=== PATIENT | male | born 1965 | race African-American/Black ===

== ENCOUNTER 2019-10-28 07:37 | Inpatient (IN) | payer SELFPAY ==
[2019-10-28] MEDS ORDERED: Morphine 4 MG/ML VIAL ONE ×3 (07:40→07:55)
[2019-10-28] MEDS ORDERED: Ondansetron PF 4 MG/2 ML Vial ONE (07:43)
[2019-10-28] MEDS ORDERED: Heparin 25,000 units/D5W 500 ML ONE (07:43)
[2019-10-28] MEDS ORDERED: Heparin 1,000 UNITS/ML VIAL ONE ×2 (07:43→07:45)
[2019-10-28] MEDS ORDERED: Lidocaine 1% (PF) 30 ML VIAL ONE (07:47)
[2019-10-28] MEDS ORDERED: Heparin (Artline) 500 ML ONE ×3 (07:47→09:08)
[2019-10-28 08:04] LABS: Hemoglobin 15.9 g/dL (14.0-18.0); Mean Corpuscular Hemoglobin 31.9 pg (27.0-31.0); Mean Corpuscular Volume 96.7 fL (78.0-98.0); Mean Platelet Volume 6.8 fL (7.4-10.4); Platelet Count 301 thou/uL (130-400); RBC Distribution Width 13.1 % (11.5-14.5); White Blood Cell (WBC) Count 7.8 thou/uL (4.8-10.8)
--- NOTE | 2019-10-28 08:06 | RAD ---
SINGLE VIEW OF THE CHEST: COMPARISON: None. HISTORY: Left-sided chest pain. FINDINGS: Single view of the chest shows a normal sized cardiomediastinal silhouette. There is no evidence of c onsolidation, mass, or pleural effusion. The bones are unremarkable. IMPRESSION: No evidence of acute cardiopulmonary disease. POS: CET
[2019-10-28 08:12] LABS: ALT (SGPT) 12 U/L (8-55); AST (SGOT) 17 U/L (5-34); Albumin 3.9 g/dL (3.5-5.0); Alkaline Phosphatase 117 U/L (40-110); Anion Gap 10 mmol/L (10-20); BUN (Urea Nitrogen) 11 mg/dL (8.4-25.7); Bilirubin, Total 0.3 mg/dL (0.2-1.2); CK (CPK) 317 U/L (30-200); Calc. Creatinine Clearance 0 mL/min (70-130); Calcium 8.8 mg/dL (7.8-10.44); Carbon Dioxide 27 mmol/L (22-29); Chloride 107 mmol/L (98-107); Estimated GFR-MDRD 54; Globulin 3.5 g/dL (2.4-3.5); Glucose 145 mg/dL (70-105); Potassium 3.6 mmol/L (3.5-5.1); Protein, Total 7.4 g/dL (6.0-8.3); Sodium 140 mmol/L (136-145)
[2019-10-28 08:14] LABS: PTT 27.4 SEC (22.9-36.1)
[2019-10-28] MEDS ORDERED: Midazolam HCl 2 mg/2 ml Vial ONE (08:25)
[2019-10-28] MEDS ORDERED: Nitroglycerin 100MG/250ML BOT 0 ML ONE (08:25)
[2019-10-28] MEDS ORDERED: Fentanyl 100 MCG/2 ML VIAL ONE (08:25)
[2019-10-28 08:28] LABS: #Basophils 0.2 thou/uL (0.0-0.2); #Eosinphils 0.2 thou/uL (0.0-0.7); #Lymphocytes 4.6 thou/uL (1.20-3.40); #Monocytes 0.6 thou/uL (0.11-0.59); #Neutrophils 2.3 thou/uL (1.40-6.50); %Basophils 2.2 % (0.0-1.0); %Lymphocytes 59.3 % (21.0-51.0); %Monocytes 7.2 % (0.0-10.0); %Neutrophils 29.3 % (42.0-75.0); Band 1 % (5-11); Eosinophils 3 % (0-10); Lymphocytes 61 % (21-51); MDiff Complete? YES; Monocytes 5 % (0-10); Neutrophil 29 % (42-75); Platelet Morphology Comment Appears Adequate; Target Cells SLIGHT = 2-5 cells (100X) (0-1/hpf)
[2019-10-28 08:34] LABS: Prothrombin Time 12.8 SEC (12.0-14.7)
[2019-10-28] MEDS ORDERED: Heparin 10,000 UNITS/1 ML VIAL ONE (08:38)
[2019-10-28] MEDS ORDERED: Morphine 2 MG/ML SYRINGE SLOW IVP PRN (09:59)
[2019-10-28] MEDS ORDERED: Nitroglycerin 0.4 MG TAB (25 Tab Bottle) SL PRN (09:59)
[2019-10-28 10:06] VITALS: BMI 37.9
[2019-10-28] MEDS ORDERED: Sodium Chloride 0.9% 500 ML IV SCH (10:15)
[2019-10-28 11:12] LABS: CKMB 35.4 ng/mL (0-6.6); Troponin I 2.814 ng/mL (< 0.028)
--- NOTE | 2019-10-28 12:32 | HP ---
CHIEF COMPLAINT: Chest pain. HISTORY OF PRESENT ILLNESS: Mr. Calix is a very pleasant 54-year-old gentleman, who comes to the hospital for chest pain. He started having chest pain at about 5:30 a.m. About an hour later, he continued to have pain, so he decided to call 911. On arrival, EMS did an EKG, that showed inferior ST elevation, so he was brought in emergently with a STEMI activation. On my evaluation, his ST elevations were still there and he was having ongoing chest pain, so he was taken emergently to the catheterization lab, where emergent left heart catheterization was done. He was found to have an occluded mid RCA. He tells me he had a stent placed to this RCA about 6 months ago at [facility] in [place]. 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 He has had a bypass in the past, single-vessel, looks to be like an RCA bypass and this has been occluded and has had to have stents to the RCA since. He has stents pretty much throughout his all of his RCA up until probably just a few centimeter before the bifurcation. This was occluded mid vessel. We wired it, ballooned it open, did manual thrombectomy until got a large amount of thrombus and a 3.0 x 24 mm drug-eluting stent was placed in the mid RCA with very good results. This was then posted to 3.56 cm. He did well. His pain was completely gone once we opened up the artery. He is pain free at the end of the procedure. PAST MEDICAL HISTORY: 1. CAD as above. 2. Hypertension. 3. Hyperlipidemia. SURGICAL HISTORY: 1. Single-vessel bypass of vein to the RCA, which has been occluded since. 2. Left hip replacement. 3. Back surgery x2. SOCIAL HISTORY: No alcohol, tobacco, or drugs. 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 OUTPATIENT MEDICATIONS: 1. Sublingual nitroglycerin p.r.n. 2. Spironolactone 25 mg a day. 3. Arginine 4000 mg b.i.d. 4. Imdur 30 mg a day. 5. Amlodipine 10 mg nightly. 6. Atorvastatin 20 mg nightly. 7. Atenolol 25 mg b.i.d. 8. Lidocaine patch. 9. Diphenhydramine p.r.n. 10. Famotidine 40 mg b.i.d. 11. Aspirin 81 a day. ALLERGIES: APPARENTLY, HE HAS BEEN ALLERGIC TO IODINE; HOWEVER, WE DID THE PROCEDURE WITHOUT ANY EVIDENCE OF ALLERGIC REACTION, AND WHEN ASKING HIM IF HE WAS ALLERGIC TO ANYTHING, HE MENTIONED THAT HE WAS NOT. IT HAS BEEN AT LEAST 4 HOURS FROM THE PROCEDURE. AT THE TIME OF THIS DICTATION, HE STILL HAS NOT HAD ANY REACTION TO THE CONTRAST USED FOR HIS CATHETERIZATION. REVIEW OF SYSTEMS: A 12-point review of systems was done and was all negative unless stated in the history of present illness. PHYSICAL EXAMINATION: VITAL SIGNS: Temperature 97.7, pulse 62, respiratory rate 20, satting 100% on room air, and blood pressure 130/70. GENERAL: Awake, alert, and oriented x3, in no distress. HEENT: Normocephalic and atraumatic. NECK: Supple. LUNGS: Clear. CARDIOVASCULAR: S1 and S2. No S3 or S4. There is a grade 2/6 systolic murmur at the right upper sternal border. Ejection systolic murmur. ABDOMEN: Soft. Positive bowel sounds. EXTREMITIES: No edema. SKIN: Warm and dry. LABORATORY DATA: Laboratory work was reviewed. White count of 7.8, hemoglobin of 15.9, hematocrit 48.3, and platelet count of 301. Coags were reviewed. Chemistries were reviewed. Troponin was undetectable initially up to 2.8 now with a CK-MB of 35. Creatinine was 1.63 with a BUN of 11 and GFR was 54. EKG was reviewed. ASSESSMENT AND PLAN: 1. Acute inferior ST-elevation myocardial infarction. 2. History of coronary artery disease. 3. Hypertension. 4. Hyperlipidemia. PLAN: 1. Dual antiplatelet therapy. He has been on Plavix all this time. He has not missed any of the doses. More than likely, he will need to be on either Brilinta or Effient. We will start him on Brilinta for now. 2. He will need high dose statins. We will change his Lipitor to 80 mg a day. 3. I will restart his home medications in the next few days as long as blood pressure will allow. 4. Echocardiogram to be done. 5. Full code. 6. PPI for stress ulcer prophylaxis and Lovenox for DVT prophylaxis. Thank you for letting us to participate in the care of your patient, 90 minutes of critical care delivered at bedside in the ER and for the admission. Job ID: [id number]
[2019-10-28] MEDS ORDERED: Iopamidol 370 76% 50 ML VIAL FS ONE (13:26)
[2019-10-28] MEDS ORDERED: Iopamidol 370 76% 100 ML VIAL ONE (13:26)
--- NOTE | 2019-10-28 15:43 | CON ---
DATE OF CONSULTATION: 10/28/2019 SERVICE: Pulmonary Medicine. REASON FOR CONSULTATION: ICU patient. HISTORY OF PRESENT ILLNESS: The patient is a 54-year-old male with past medical history significant for obstructive sleep apnea. He tried using two separate CPAP's and different masks and equipment, but was never able to tolerate this thing. Either way, he has known coronary artery disease with a history of coronary artery bypass graft three years ago. He ended up waking up this morning with abrupt onset of anterior chest discomfort. He presented to the Emergency Department, was discovered to be suffering from an inferior ST-elevation myocardial infarction. He was emergently brought for cardiac catheterization. An RCA lesion was identified and fixed. Balloon followed by thrombectomy and placement of drug-eluting stent was performed. After the vessel was opened up, he had immediate improvement in chest discomfort. He was brought to the ICU for close monitoring. PAST MEDICAL HISTORY: 1. Coronary artery disease. 2. Hypertension. 3. Dyslipidemia. 4. Obstructive sleep apnea. PAST SURGICAL HISTORY: 1. Left hip replacement. 2. Back surgery x2. 3. Coronary artery bypass graft. 4. Percutaneous coronary intervention with stent placement to the RCA. SOCIAL HISTORY: Negative for alcohol, tobacco, or illicit drug use. 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 He has no exposure to chemicals, dust, asbestos, or tuberculosis. FAMILY HISTORY: Noncontributory. ALLERGIES: NO KNOWN DRUG ALLERGIES. MEDICATIONS: List of the inpatient medications was reviewed. No specific updates were made at this time. REVIEW OF SYSTEMS: General, head, ears, eyes, nose, throat, cardiovascular, respiratory, GI, , musculoskeletal, neurologic, and skin are negative except as mentioned in HPI. PHYSICAL EXAMINATION: VITAL SIGNS: Afebrile, pulse 52, blood pressure 137/88, respirations 20, and saturation 97% on room air. GENERAL: The patient is awake and alert, in no apparent distress. LUNGS: Wonderful air entry. No prolonged expiratory phase or wheezing. HEART: Normal rate. Regular. ABDOMEN: Soft, nontender, and nondistended. Bowel sounds are positive. MUSCULOSKELETAL: No cyanosis or clubbing. No pitting in the bilateral lower extremities. NEUROLOGIC: Grossly nonfocal. IMAGING: Chest x-ray demonstrates multiple calcified densities over the left hilum and to a lesser degree right lower hilum. Interstitial changes are also noted. No obvious effusions, masses, or consolidating changes are present. ASSESSMENT: 1. Acute ST-elevation myocardial infarction. 2. Coronary artery disease. 3. Obstructive sleep apnea, abandoned therapy remotely. DISCUSSION AND PLAN: The patient is doing absolutely wonderful after his stent was placed. After his time is up, we will gently mobilize him, and initiate feeds through the day. We discussed the possible complications of untreated, severe sleep apnea including dementia, stroke, sudden , heart problems, and kidney problems, but the patient is not interested in pursuing a polysomnogram. Pulmonary will continue to follow in this location, but when he transitions to the floor, he will have no further requirements for Pulmonary/Critical Care opinion, and I will sign off. 70 minutes have been devoted to this patient in various activities. I personally reviewed all imaging studies and laboratory data noted within this document. For fifty percent of this time, I was interacting with the patient at the bedside or coordinating care with the care team. For the remainder of the time I was immediately available to the patient in the hospital unit. Job ID: [id number] MTDD
[2019-10-28 16:28] LABS: Hemoglobin 14.8 g/dL (14.0-18.0)
[2019-10-28 16:58] LABS: Troponin I 10.148 ng/mL (< 0.028)
[2019-10-28 17:00] LABS: CKMB 68.4 ng/mL (0-6.6)
[2019-10-28] MEDS ORDERED: Atorvastatin Calcium 40 MG TAB PO SCH (21:00)
[2019-10-28] MEDS: TICAGRELOR 90 MG TABLET PO SCH (21:53)
[2019-10-29 04:16] LABS: #Basophils 0.1 thou/uL (0.0-0.2); #Eosinphils 0.2 thou/uL (0.0-0.7); #Lymphocytes 3.1 thou/uL (1.20-3.40); #Monocytes 0.7 thou/uL (0.11-0.59); #Neutrophils 3.5 thou/uL (1.40-6.50); %Basophils 0.8 % (0.0-1.0); %Eosinophils 2.2 % (0.0-10.0); %Lymphocytes 41.6 % (21.0-51.0); %Monocytes 8.6 % (0.0-10.0); %Neutrophils 46.7 % (42.0-75.0); Hemoglobin 14.3 g/dL (14.0-18.0); Mean Corpuscular HGB CONC 32.3 g/dL (32.0-36.0); Mean Corpuscular Hemoglobin 31.3 pg (27.0-31.0); Mean Platelet Volume 6.8 fL (7.4-10.4); Platelet Count 280 thou/uL (130-400); Red Blood Cell (RBC) Count 4.56 mill/uL (4.70-6.10); White Blood Cell (WBC) Count 7.5 thou/uL (4.8-10.8)
[2019-10-29 04:34] LABS: ALT (SGPT) 14 U/L (8-55); AST (SGOT) 43 U/L (5-34); Albumin 3.4 g/dL (3.5-5.0); Alkaline Phosphatase 101 U/L (40-110); Anion Gap 10 mmol/L (10-20); BUN (Urea Nitrogen) 10 mg/dL (8.4-25.7); Bilirubin, Total 0.3 mg/dL (0.2-1.2); Calc. Creatinine Clearance 146 mL/min (70-130); Calcium 8.6 mg/dL (7.8-10.44); Carbon Dioxide 23 mmol/L (22-29); Chloride 108 mmol/L (98-107); Estimated GFR-MDRD 86; Globulin 3.2 g/dL (2.4-3.5); Glucose 109 mg/dL (70-105); Potassium 4.3 mmol/L (3.5-5.1); Protein, Total 6.6 g/dL (6.0-8.3); Sodium 137 mmol/L (136-145)
[2019-10-29 07:55] VITALS: TEMP 97.9
[2019-10-29] MEDS: TICAGRELOR 90 MG TABLET PO SCH (08:55)
[2019-10-29] MEDS ORDERED: Aspirin Chewable 81 MG TAB PO SCH (09:00)
[2019-10-29] MEDS ORDERED: Atenolol 25 MG TAB PO SCH ×2 (10:45→21:00)
[2019-10-29] MEDS ORDERED: Isosorbide Mononitrate (ER) 30 MG TAB PO SCH (11:30)
[2019-10-29 11:59] VITALS: BP 138/96
--- NOTE | 2019-10-29 14:23 | DIS ---
DATE OF ADMISSION: 10/28/2019 DATE OF DISCHARGE: 10/29/2019 DISCHARGE DIAGNOSES: 1. Inferior ST-segment elevation myocardial infarction with drug-eluting stent placed in the right coronary artery, troponin I 10.148. 2. Previous right coronary artery stents. The last of which the patient states was two months ago. 3. Status post coronary artery bypass grafting x1 to the right coronary artery, which has since occluded. 4. Hypertension. 5. Hypercholesterolemia. 6. Acute kidney injury with creatinine of 1.63 on admission, falling to 1.09 at discharge. 7. The patient signed out against medical advice. HOSPITAL COURSE: Mr. Calix presented with chest discomfort and slight ST elevation in the inferior leads. He underwent emergent catheterization by Dr. Keen and was found to have mild disease in the left anterior descending. There was mild disease in the circumflex and a patent stent. The right coronary artery is totally occluded in its midportion. Synergy 3.0 x 24 mm stent was placed after thrombotic material was removed. This was dilated to 3.5 cm. He did not have any recurrence of chest discomfort. He was placed on Brilinta. The following morning, he was without chest pain, but was somewhat hypertensive. His blood pressure medicines were going to be resumed and then discharged the following day. However, he signed out against medical advice. He was given a prescription for Brilinta 90 mg b.i.d. Job ID: [id number] MTDD
[2019-10-29] MEDS ORDERED: Famotidine 20 MG TAB PO SCH (21:00)
[2019-10-30] MEDS ORDERED: Isosorbide Mononitrate (ER) 30 MG TAB PO SCH (09:00)
[2019-10-30] MEDS ORDERED: Amlodipine 10 MG TAB PO SCH (21:00)
--- NOTE | 2019-10-31 00:14 | EKG ---
Test Reason : POST STENT-RCA Blood Pressure : / mmHG Vent. Rate : 058 BPM Atrial Rate : 058 BPM P-R Int : 192 ms QRS Dur : 102 ms QT Int : 448 ms P-R-T Axes : 061 034 062 degrees QTc Int : 439 ms Sinus bradycardia Possible Inferior infarct , age undetermined Abnormal ECG No previous ECGs available Confirmed by Kimberly TRONCOSO ([id number]) on 10/31/2019 12:14:14 AM Referred By: TERESA Confirmed By:Kimberly TRONCOSO
== END 2019-10-29 12:00 | disposition left against medical advice (07) | DRG 247 ==
LOC: ERS 07:37 → EDBD 07:37 → CCU 08:09 → CCL 08:28 → CCU 09:00
PROVIDERS: ADMIT Internal Medicine Cardiovascular Disease; ATTEND Internal Medicine Cardiovascular Disease
PROC: 027034Z Dilation of Coronary Artery, One Artery with Drug-eluting Intraluminal Device, Percutaneous Approach (ICD-10-PCS; principal; 2019-10-28)
PROC: 4A023N7 Measurement of Cardiac Sampling and Pressure, Left Heart, Percutaneous Approach (ICD-10-PCS; 2019-10-28)
PROC: B2111ZZ Fluoroscopy of Multiple Coronary Arteries using Low Osmolar Contrast (ICD-10-PCS; 2019-10-28)
PROC: B2151ZZ Fluoroscopy of Left Heart using Low Osmolar Contrast (ICD-10-PCS; 2019-10-28)
PROC: 02C03ZZ Extirpation of Matter from Coronary Artery, One Artery, Percutaneous Approach (ICD-10-PCS; 2019-10-28)
DX: I21.19 ST elevation (STEMI) myocardial infarction involving other coronary artery of inferior wall (principal); N17.9 Acute kidney failure, unspecified; I10 Essential (primary) hypertension; E78.00 Pure hypercholesterolemia, unspecified; I25.10 Atherosclerotic heart disease of native coronary artery without angina pectoris; G47.33 Obstructive sleep apnea (adult) (pediatric); E78.5 Hyperlipidemia, unspecified; Z96.642 Presence of left artificial hip joint; Z88.8 Allergy status to other drugs, medicaments and biological substances; Z95.1 Presence of aortocoronary bypass graft
CPT/HCPCS: 36415; 71045; 76942; 80053; 82550; 82553; 84484; 85025; 85347; 85610; 85730; 86850; 86900; 86901; 92941; 93005; 93010; 93306; 93459; 93798; 94760; 96365; 96375; 96376; C1757; C1769; C1874; C1887; C9606; J1644; J2001; J2250; J2270; J2405; J3010; Q9967